=== PATIENT | female | born 1985 | race Caucasian/White ===

== ENCOUNTER 2017-10-23 16:56 | Outpatient (CLI) | payer OTHER ==
[2015-08-22 10:04] VITALS: BP 131/75
[2017-10-23 17:27] LABS: MEAN CORPUSCULAR HEMOGLOBIN 29.5 pg (28.0-34.0); MEAN CORPUSCULAR VOLUME 85.6 fl (80.0-100.0)
[2017-10-23 17:28] LABS: BASOPHILS % 0.6 (0.0-1.5); EOSINOPHILS % 4.1 % (0.0-6.8); MONOCYTES % 8.8 % (0.0-11.0)
[2017-10-23 17:29] LABS: NEUTROPHILS # 1.1 # k/uL (1.4-7.7)
[2017-10-23 17:30] LABS: eGFR (Non-African) > 60
== END 2017-10-23 16:58 ==
LOC: LABRHC 16:56
PROVIDERS: ATTEND Family Medicine
DX: R10.84 Generalized abdominal pain (principal)
CPT/HCPCS: 80053; 85025

== ENCOUNTER 2017-11-01 14:44 | Outpatient (CLI) | payer OTHER ==
[2015-08-22 10:04] VITALS: BP 131/75
[2017-11-01 16:22] LABS: eGFR (Non-African) > 60
== END 2017-11-01 14:46 ==
LOC: LAB 14:44
PROVIDERS: ATTEND Family Medicine
DX: E87.6 Hypokalemia (principal)
CPT/HCPCS: 36415; 80053